=== PATIENT | female | born 1990 | race Caucasian/White ===

== ENCOUNTER → 2021-02-04 | Outpatient (CLI) | payer OTHER ==
[~2021-02-04] MED LIST: GADOTERATE 5 MMOL/10ML VIAL. IVP ONE; GUAI118L13 PO; ONDA4TAB12 PO
--- NOTE | 2021-02-08 09:42 | KCIC ---
MRI abdomen with and without contrast: Clinical indications: Further evaluation of small subcentimeter nodules of the liver seen on CT study dated January 21, 2021. COMPARISON: CT study of the abdomen dated January 21, 2021 and abdomen ultrasound study dated January 28, 2021. Technique: T1 and T2 weighted MRI sequences of the abdomen was performed in the axial and coronal lisa jus. In phase and out of phase MRI sequences were performed as well. After IV infusion of 20 mL of Ga davist, multiphasic postcontrast T1-weighted sequences were obtained. Findings: On series 16 and image 22, there is a tiny 4 mm nodule within the inferior aspect posterior segment r ight lobe of the liver. This is the only liver lesion seen. This is nonenhancing. The spleen is homogeneous in appearance. The pancreas is homogeneous in appearance. The gallbladder appears normal. No abnormal dilatation of the intrahepatic or extrahepatic biliary tree is seen. No adrenal mass is evident. Nonenhancing bilateral renal cysts are seen. There is an incidental finding and no further follow-up is needed. No hydronephrosis. No focal aneurysmal dilatation of the abdominal aorta is seen. No enlarged abdominal lymphadenopathy is seen. No ascites is seen. IMPRESSION: Nonenhancing 4 mm nodule of the inferior aspect of the right lobe of the liver which most likely represents a small cyst. The other small lesions seen by CT are not seen by MRI or by ultraso und. If the patient has a history of primary malignancy, follow-up abdomen CT with IV contrast in 3 m onths is recommended. If no history of primary malignancy, then follow-up abdomen CT with IV contrast in 6 months is recommended to ensure stability. Electronically signed by: Eric Abraham MD (02/08/2021 9:40 AM) [place] [id number]
== END ==
LOC: KCIC MRI 15:03
PROVIDERS: ATTEND Physician Assistant Medical
DX: K76.89 Other specified diseases of liver (principal)
CPT/HCPCS: 74183; A9575

== ENCOUNTER → 2021-04-12 | Outpatient (CLI) | payer OTHER ==
[~2021-04-12] VITALS: Ht 162.6 cm; Wt 99.8 kg
[~2021-04-12] MED LIST changes: +ETON68IM3 SQ; -GADOTERATE 5 MMOL/10ML VIAL. IVP ONE; +METH36TA5 PO; +MORPHINE SULFATE 4 MG/ML VIAL. IV ONE; +MORPHINE SULFATE 4 MG/ML VIAL. ONE; +PROP80CA3 PO; +VENL75TA PO
--- NOTE | 2021-04-12 09:10 | RAD ---
INDICATION : Reason: NAUSEA / Spl. Instructions: / History: COMPARISON: MRI from January 2021 TECHNIQUE: Multiple ultrasound images obtained through the abdomen in grayscale and color. FINDINGS: Liver: Echogenic. Portions are not well seen secondary to poor beam penetration. Gallbladder: No wall thickening or stones. IVC: Partially distended at level of liver. Common Bile Duct: Not dilated. Pancreas: Not well seen secondary to overlying structures obscuring. Right Kidney: No hydronephrosis. IMPRESSION: * No biliary ductal dilation or gallstones. * Liver is echogenic. Nonspecific but can be seen with fatty infiltration. Electronically signed by: Earnest Watkins MD (04/12/2021 9:08 AM) [id number]
--- NOTE | 2021-04-12 10:00 | NUR ---
Pt to Nuc med for gall bladder study. Morphine ordered per protocol to complete study. Morphine given by this RN, O2 sat in place throughout. Pt tolerated well, VSS. Pt instructed to stay in building for 2 hours post injection. JIN POLO
--- NOTE | 2021-04-12 11:25 | RAD ---
INDICATION: Reason: NAUSEA / Spl. Instructions: NO GBEF, 4 MG MORPHINE GIVEN IV / History: NAUSEA, A BD. PAIN X 3 MONTHS COMPARISON: Ultrasound from same day. TECHNIQUE: 6mCi of Tc99m Choletec was injected intravenously followed by scintigraphic images of the abdomen. 4 mg of morphine were given. FINDINGS: Appropriate radiotracer clearance from the blood pool. Appropriate radiotracer excretion into the biliary tree. Prompt passage of contrast into the small bowel. Gallbladder is visualized after administration of morphine. IMPRESSION: Gallbladder is seen after administration of morphine without evidence of acute cholecystitis. Radiotracer is seen extending into the small bowel without evidence of common bile duct obstruction. Electronically signed by: Earnest Watkins MD (04/12/2021 11:23 AM) [id number]
== END ==
LOC: US 07:13
PROVIDERS: ATTEND Internal Medicine Gastroenterology
DX: R11.0 Nausea (principal); K76.0 Fatty (change of) liver, not elsewhere classified
CPT/HCPCS: 76705; 78227; A9537; J2270

== ENCOUNTER 2021-05-27 06:57 | Day surgery (SDC) | payer OTHER ==
[~2021-05-27] VITALS: Ht 162.6 cm; Wt 100.0 kg
[~2021-05-27 06:57] MED LIST changes: +ACETAMINOPHEN 500 MG TABLET PO PRN; +AMIT25TA PO; +BUTA1CAP57 PO; +EREN70AU2 SQ; +HYDROmorphone 2 MG/ML VIAL IVP PRN; +MORPHINE SULFATE 2 MG/ML INJ. IVP PRN; -MORPHINE SULFATE 4 MG/ML VIAL. IV ONE; -MORPHINE SULFATE 4 MG/ML VIAL. ONE; +fentaNYL PF VIAL 100 MCG/2 ML VIAL IVP PRN
[2021-05-27] MEDS ORDERED: IOHEXOL 300 MG/ML 50 ML VIAL. ONE (06:58)
[2021-05-27] MEDS ORDERED: BUPIVACAINE-EPI 0.25%-1:200000 MPF 30 ML VIAL. ONE (06:58)
[2021-05-27] MEDS ORDERED: SURGICEL HEMOSTAT 4X8 EACH. ONE (06:58)
[2021-05-27 07:25] VITALS: BP 122/75
[2021-05-27] MEDS: IV RINGERS,LACTATED 1000ML 1,000 ML IV SCH ×2 (07:33→12:54)
[2021-05-27] MEDS ORDERED: SCOPOLAMINE 1.5MG PATCH. TD ONE (08:15)
--- NOTE | 2021-05-27 08:43 | PDOC1 ---
History and Physical Date of Admission Date of Admission DATE: 05/27/21 TIME: 08:39 Identification/Chief Complaint Chief Complaint 30-year-old female with complaints of abdominal pain mostly epigastric to right upper quadrant radiating to her back been present for approximately 4 months she also describes some loose stools and crampy lower abdominal pain especially after eating. She had extensive GI work-up with EGDs colonoscopies ultrasound and CT scan and HIDA scan was performed which showed slow delayed uptake in the gallbladder with recurrence of her symptoms at the time of the procedure Source Source: Patient History of Present Illness History of Present Illness 30-year-old female with complaints of abdominal pain mostly epigastric to right upper quadrant radiating to her back been present for approximately 4 months she also describes some loose stools and crampy lower abdominal pain especially after eating. She had extensive GI work-up with EGDs colonoscopies ultrasound and CT scan and HIDA scan was performed which showed slow delayed uptake in the gallbladder with recurrence of her symptoms at the time of the procedure Past Medical History Cardiovascular: No pertinent hx Pulmonary: No pertinent hx CENTRAL NERVOUS SYSTEM: Migraine GI: Constipation Heme/Onc: No pertinent hx Hepatobiliary: No pertinent hx Psych: Anxiety, Depression Rheumatologic: No pertinent hx Infectious disease: No pertinent hx ENT: No pertinent hx Renal/: No pertinent hx Endocrine: No pertinent hx Dermatology: No pertinent hx Past Surgical History Past Surgical History: Appendectomy, Tonsillectomy Family History Family History: No Significant Social History Smoke: No ALCOHOL: none Drugs: None Current Medications Current Medications Current Medications Fentanyl Citrate (Fentanyl 2ml Vial) 25 mcg PRN Q5MIN PRN IVP MILD PAIN 1-3; Start 05/27/21 at 06:00; Stop 05/28/21 at 05:59 Fentanyl Citrate (Fentanyl 2ml Vial) 50 mcg PRN Q5MIN PRN IVP MODERATE PAIN 4- 6; Start 05/27/21 at 06:00; Stop 05/28/21 at 05:59 Morphine Sulfate (Morphine Sulfate) 1 mg PRN Q10MIN PRN IVP SEVERE PAIN 7-10; Start 05/27/21 at 06:00; Stop 05/28/21 at 05:59 Ringer's Solution 1,000 ml @ 30 mls/hr Q24H IV Last administered on 05/27/21at 07:33; Start 05/27/21 at 06:00; Stop 05/27/21 at 17:59 Hydromorphone HCl (Dilaudid) 0.5 mg PRN Q10MIN PRN IVP SEVERE PAIN 7-10, 2nd CHOICE; Start 05/27/21 at 06:00; Stop 05/28/21 at 05:59 Prochlorperazine Edisylate (Compazine) 5 mg PACU PRN PRN IVP NAUSEA, MRX1; Start 05/27/21 at 06:00; Stop 05/28/21 at 05:59 Cefazolin Sodium/ Dextrose 50 ml @ 100 mls/hr 1X PREOP PRN IV PRIOR TO PROCEDURE; Start 05/27/21 at 06:00; Stop 05/27/21 at 18:00 Acetaminophen (Tylenol) 1,000 mg 1X PREOP PRN PO PRIOR TO PROCEDURE Last administered on 05/27/21at 07:32; Start 05/26/21 at 17:00 Iohexol (Omnipaque 300 Mg/ml) 50 ml STK-MED ONCE .ROUTE ; Start 05/27/21 at 06:58; Stop 05/27/21 at 06:58; Status DC Cellulose (Surgicel Hemostat 4x8) 1 each STK-MED ONCE .ROUTE ; Start 05/27/21 at 06:58; Stop 05/27/21 at 06:58; Status DC Bupivacaine HCl/ Epinephrine Bitart (Sensorcaine-Epi 0.25%-1:527488 Mpf) 30 ml STK-MED ONCE .ROUTE ; Start 05/27/21 at 06:58; Stop 05/27/21 at 06:58; Status DC Scopolamine (Transderm-Scop) 1 patch 1X ONCE TD Last administered on 05/27/21at 08:19; Start 05/27/21 at 08:15; Stop 05/27/21 at 08:16; Status DC Active Scripts Active Reported Kzmpml-Rsvlcpdk-Ocrk 50-300-40 (Butalb/Acetaminophen/Caffeine) 1 Each Capsule 1 Each PO PRN PRN Amitriptyline Hcl 25 Mg Tablet 25 Mg PO DAILY Aimovig Autoinjector (Erenumab-Aooe) 140 Mg/1 Ml Auto.injct 140 Mg SQ Q4WK Concerta (Methylphenidate Hcl) 36 Mg Tab.er.24 1 Tab PO DAILYWBKFT MDD 1 Tab let(s) 5 Days Venlafaxine Hcl 75 Mg Tablet 1 Tab PO DAILY07 Nexplanon (Etonogestrel) 68 Mg Implant 68 Mg SQ Propranolol Hcl 80 Mg Cap.sa.24h 1 Cap PO DAILY Ondansetron Odt (Ondansetron) 4 Mg Tab.rapdis 1 Tab PO PRN Q6-8HRS Allergies Allergies: Coded Allergies: bee venom protein (honey bee) (Verified Allergy, Intermediate, 05/27/21) ROS Gastrointestinal: Yes Abdominal Pain Physical Exam General: Alert, Oriented X3, Cooperative, No acute distress HEENT: Atraumatic, EOMI Lungs: Clear to auscultation, Normal air movement Heart: RRR, no murmurs Abdomen: Normal bowel sounds, Soft, Other (Tender to palpation right upper quadrant) Rectal Exam: not examined Extremities: No edema Skin: No significant lesion Neuro: Normal speech Psych/Mental Status: Mental status NL Vitals Vitals Vital Signs Date Time Temp Pulse Resp B/P (MAP) Pulse Ox O2 Delivery O2 Flow Rate FiO2 05/27/21 07:28 97.6 75 20 122/75 96 Room Air 97.6 Labs Labs Laboratory Tests Test 05/27/21 06:33 Bedside Urine HCG, Qualitative Hcg negative (Negative) Laboratory Tests Test 05/27/21 06:33 Bedside Urine HCG, Qualitative Hcg negative (Negative) VTE Prophylaxis Ordered VTE Prophylaxis Devices: Yes VTE Pharmacological Prophylaxi: Contraindicated Assessment/Plan Assessment/Plan Biliary dyskinesia plan laparoscopic cholecystectomy Justifications for Admission Other Justification YVES GRANDA MD May 27, 2021 08:43
[2021-05-27] MEDS ORDERED: KETAMINE HCL IN NACL, ISO-OSM 50 MG/5 ML SYRINGE ONE (08:47)
[2021-05-27] MEDS ORDERED: MIDAZOLAM HCL/PF 2 MG/2 ML VIAL. ONE (08:47)
[2021-05-27] MEDS ORDERED: ROCURONIUM 50 MG/5 ML VIAL. ONE (08:51)
[2021-05-27] MEDS ORDERED: PROPOFOL 10 MG/ML (20ML) VIAL. IV ONE (08:52)
[2021-05-27] MEDS ORDERED: ONDANSETRON PF 4 MG/2 ML VIAL. ONE (08:52)
[2021-05-27] MEDS ORDERED: LIDOCAINE 2% PF 5 ML VIAL. ONE (08:52)
[2021-05-27] MEDS ORDERED: DEXAMETHASONE SOD PHOS 4 MG/ML VIAL ONE (08:52)
[2021-05-27] MEDS ORDERED: KETOROLAC 30 MG/ML VIAL. ONE (08:52)
[2021-05-27] MEDS ORDERED: diphenhydrAMINE 50 MG/ML VIAL ONE (09:16)
[2021-05-27] MEDS ORDERED: GLYCOPYRROLATE 1 MG/5 ML VIAL. ONE (09:17)
[2021-05-27] MEDS ORDERED: NEOSTIGMINE METHYLSULFATE 5 MG/5 ML SYRINGE. ONE (09:17)
--- NOTE | 2021-05-27 09:45 | PDOC4 ---
Operative Note Operative Note Date: May 27, 2021 at 943 Preoperative diagnosis: Biliary dyskinesia Postoperative diagnosis: Same Procedure: Robotic assisted laparoscopic cholecystectomy with fluorescein cholangiography Surgeon: Slade Specimen: Gallbladder Dictation: Patient is a 30-year-old female with right upper quadrant abdominal pain and the abnormal HIDA scan. Procedure of laparoscopic cholecystectomy was explained to the patient detail risk benefits were also discussed including bleeding infection injury to intra-abdominal contents possible necessitating further or open operations alternatives to this procedure also discussed with patient who seemed to understand and gave a verbal written consent to have the procedure performed. Patient was taken to the operating room placed in the supine position general anesthesia was initiated once patient was sleeping intubated her abdomen was prepped and draped usual sterile fashion using ChloraPrep. Area just below the umbilicus was injected with quarter percent Marcaine with epinephrine incision was made 11 blade scalpel and a varies needle was placed within the abdomen creating pneumoperitoneum once this was complete 11 mm port was placed in a 5 mm camera was placed within the abdomen which was inspected no other abnormalities were noted. 5 mm port was placed in the epigastrium a 5 mm port was placed in the right midabdomen a 5 mm port was placed in the right lateral abdomen. The dome of the gallbladder is grasped retracted cephalad the infundibulum of the gallbladder is grasped retracted laterally exposing the triangle adherent tissues the triangle were taken down with blunt dissection exposing the cystic duct and cystic artery the fluorescein cholangiography was performed which showed good green dye within the cystic duct down to the common duct no evidence of obstruction. The cystic duct was doubly clipped and transected the cystic artery was clipped and transected the gallbladder is taken off the liver with hook electrocautery placed in Endo Catch bag removed and the umbilicus the right upper quadrant is irrigated and suctioned dry hemostasis was deemed to be appropriate the pneumoperitoneum was reduced all ports were removed the fascial defect at the umbilicus was closed w ith a [id number] 0 Vicryl suture and the skin was reapproximated all port sites for subcuticular Monocryl Mastisol Steri-Strips and island dressings were applied. Patient was awakened and extubated in the operating room taken to recovery in stable condition all sponge instrument needle counts listed as correct estimated blood loss 10 mL YVES GRANDA MD May 27, 2021 09:45
[2021-05-27] MEDS ORDERED: OXYC1TAB15 PO (09:47)
--- NOTE | 2021-05-27 09:49 | DISCH ---
DISCHARGE INSTRUCTIONS Condition on Discharge Condition on Discharge: Stable Activity After Discharge Activity Instructions for Disc: Avoid exertion Other activity instructions: No lifting more than 20 pounds for 2 weeks Diet after Discharge Diet after Discharge: Low Fat Wound Incision Care Other wound/incision instructi: May shower in 24 hours Contacting the after DC Call your doctor for: If your condition worsens Follow-Up Follow up with: Dr. Granda in 2 weeks YVES GRANDA MD May 27, 2021 09:49
[2021-05-27] MEDS ORDERED: ESMOLOL 100 MG/10 ML VIAL. IVP ONE (09:51)
[2021-05-27] MEDS ORDERED: PHENYLEPHRINE in 0.9% NACL PF 1 MG/10 ML SYRINGE. IV ONE (09:51)
[2021-05-27] MEDS ORDERED: fentaNYL PF VIAL 100 MCG/2 ML VIAL ONE (09:58)
[2021-05-27] MEDS: fentaNYL PF VIAL 100 MCG/2 ML VIAL IVP PRN ×2 (10:00→10:24)
[2021-05-27] MEDS ORDERED: PROCHLORPERAZINE 10 MG/2 ML VIAL. ONE (10:14)
[2021-05-27] MEDS: PROCHLORPERAZINE 10 MG/2 ML VIAL. IVP PRN ×2 (10:18→10:45)
[2021-05-27 11:30] VITALS: BP 99/65
[2021-05-27] MEDS ORDERED: oxyCODONE/APAP 5/325 1 TAB TABLET PO ONE (11:30)
--- NOTE | 2021-05-30 17:11 | PATHOLOGY ---
[facility] Accession Number: [id number] . 01 Material submitted: . gallbladder - GALLBLADDER AND CONTENTS . 01 Clinical history: . BILIARY DYSKINESIA LAP ADAM . 02 Diagnosis: Gallbladder, laparoscopic cholecystectomy: - Cholesterolosis. - Chronic cholecystitis. - Focal lipogranulomata of gallbladder neck lymph node. (JPM:pit; 05/30/2021) P 05/30/2021 1406 Local . 02 Comment: There are no calculi identified within the gallbladder lumen or specimen container. There is no evidence of malignancy. (JPM:pit; 05/30/2021) . 02 Electronically signed: . Robert Wright MD, Pathologist NPI- [id number] . 01 Gross description: . Fixative: Formalin Labeled: Gallbladder and contents Specimen received: Intact Dimensions: 7.3 x 2.9 x 2.8 cm Serosa: Logan-blue and glistening Lymph node: Hayden, 0.7 x 0.4 x 0.3 cm Mucosa: Green and velvety with abundant hardy stippling Average wall thickness: 0.3 cm Calculi: None Abnormalities: None . A1: Gallbladder, represented (AGUA CALIENTE; 05/27/2021) DKA/DKA 05/27/2021 1832 Local . 02 Pathologist provided ICD-10: K81.1, K82.4 . 02 CPT . 785525 Performed at: 01 [facility] [address], [place] [id number] MD Malvin Corona MD Phone: [phone] Performed at: 02 [facility] [address] [place], [place] [id number] MD Robert Wright MD Phone: [phone]
== END 2021-05-27 12:50 | disposition home or self-care (01) ==
LOC: SURG 06:57
PROVIDERS: ATTEND Surgery
DX: K81.1 Chronic cholecystitis (principal); K82.8 Other specified diseases of gallbladder; F41.9 Anxiety disorder, unspecified; F32.9 Major depressive disorder, single episode, unspecified; Z79.899 Other long term (current) drug therapy; Z98.890 Other specified postprocedural states; Z88.8 Allergy status to other drugs, medicaments and biological substances
CPT/HCPCS: 47563; 74300; 81025; 88304; A4364; A4930; A6219; J0690; J0780; J1100; J1200; J1885; J2250; J2370; J2405; J2704; J2710; J3010; J3490; A4657; Q9967